=== PATIENT | male | born 2000 | race Two or more races ===

== ENCOUNTER 2020-10-23 18:37 | Emergency (ER) | payer SELFPAY | END 2020-10-23 19:57 | disposition left against medical advice (07) | LOC: ER 18:37 | DX: S51.811A Laceration without foreign body of right forearm, initial encounter (principal); Z53.21 Procedure and treatment not carried out due to patient leaving prior to being seen by health care provider; Y28.8XXA Contact with other sharp object, undetermined intent, initial encounter; Y93.89 Activity, other specified; Y92.89 Other specified places as the place of occurrence of the external cause; Y99.9 Unspecified external cause status ==